=== PATIENT | female | born 1965 | race Caucasian/White ===

== ENCOUNTER 2017-02-01 09:55 | Day surgery (SDC) | payer OTHER ==
[~2017-02-01] VITALS: Ht 157.5 cm; Wt 65.1 kg
[2017-02-01 10:52] VITALS: Ht 157.5 cm; Wt 65.1 kg
[2017-02-01] MEDS ORDERED: OMEP20CA16 PO (10:56)
[2017-02-01 11:10] VITALS: BP 106/58; PULSE 78; RESP 18
[2017-02-01] MEDS ORDERED: FENTAnyl 50 MCG/ML VIAL ONE (11:37)
[2017-02-01] MEDS ORDERED: MIDAZOLAM 1 MG/ML 2 ML INJ ONE ×2 (11:37)
[2017-02-01 11:46] VITALS: BP 102/55; RESP 20
--- NOTE | 2017-02-01 13:21 | GILP ---
DATE OF PROCEDURE: 02/01/2017 PROCEDURE PERFORMED: Esophagogastroduodenoscopy with biopsy. INDICATION: A 51-year-old female complains of epigastric pain, persistent after cholecystectomy. T he purpose is to evaluate upper GI tract and find out the cause of her pain. INFORMED CONSENT: Risk of the procedure, related and unrelated complications, anesthetic sedative r isks, alternatives discussed and informed consent was obtained. DESCRIPTION OF PROCEDURE: The patient was brought to the GI lab, sedated with Versed and fentanyl, total ____required 3 mg of Versed and 75 mg of fentanyl. After obtaining optimal sedation, the scop e was passed with much ease into esophagus which was grossly within normal limits. Z line was regul ar; it was at 35. Stomach mucosa revealed gastritis. Four biopsies were obtained randomly. Duoden um, first and second part including ampulla appeared normal. Retroversion also was normal. Scope w as straightened out and removed with good patient tolerance. IMPRESSION: 1. Normal esophagus. 2. Normal Z-line. 3. Gastritis. 4. Normal duodenum with ampulla. 5. Z line was at 35 cm. PLAN: Review the histopathology. The patient needs ultrasound of the abdomen to make sure there is no bile duct stone. Dictated By: KATIE DIAZ MD PJ/NTS Conf#: [id number] DID#: [id number] CC: KATIE DIAZ MD;*EndCC*
== END 2017-02-01 17:34 | disposition home or self-care (01) ==
LOC: GIL 09:55
PROVIDERS: ATTEND Internal Medicine Gastroenterology
DX: K29.30 Chronic superficial gastritis without bleeding (principal)
CPT/HCPCS: 43239; 88305; 88312; J2250; J3010; Z7610